=== PATIENT | male | born 1985 | race African-American/Black ===

== ENCOUNTER 2017-06-28 04:27 | Emergency (ER) | payer SELFPAY ==
[~2017-06-28] VITALS: Ht 182.9 cm; Wt 109.1 kg
[2017-06-28 07:30] VITALS: BP 120/63
[2017-06-28] MEDS ORDERED: HYDROCODONE/ACETAMINOPHEN 5-325 MG TABLET PO ONE (07:45)
== END 2017-06-28 08:21 | disposition home or self-care (01) ==
LOC: EMS 04:28
DX: S93.402A Sprain of unspecified ligament of left ankle, initial encounter (principal); S90.31XA Contusion of right foot, initial encounter; S90.32XA Contusion of left foot, initial encounter; X58.XXXA Exposure to other specified factors, initial encounter; Y93.39 Activity, other involving climbing, rappelling and jumping off; Y92.89 Other specified places as the place of occurrence of the external cause; Y99.8 Other external cause status
CPT/HCPCS: 99284